=== PATIENT | female | born 1940 | race Caucasian/White ===

== ENCOUNTER 2020-03-05 12:12 | Inpatient (IN) | payer MEDICARE ==
[~2020-03-05] VITALS: Ht 152.4 cm; Wt 59.9 kg
[~2020-03-05 12:12] MED LIST: ASPI-496 PO; FOLI-17 PO; FURO40TA6 PO; LACT20SO13 PO; MULT-449 PO; OMEP-110 PO; SPIR25TA PO; THIA100T67 PO; aspirin; hydrochlorothiazide
--- NOTE | 2020-03-05 12:53 | NUR ---
PER EMS PT RECEIVED 25 MCG OF FENTANYL AND HAD ALREADY TAKEN HER PRESCRIPTION VALIUM AT HOME (UNKNOWN DOSE OF VALIUM).
[2020-03-05] MEDS ORDERED: SODIUM CHLORIDE FLUSH 10ML SYR IVF ONE ×2 (13:00→14:00)
[2020-03-05 13:21] LABS: BASOPHILS % (AUTO) 1 % (0-1); EOSINOPHILS % (AUTO) 0 % (1-7); LYMPHOCYTES % (AUTO) 18 % (22-44); MEAN CORPUSCULAR HEMOGLOBIN 28.1 pg (27.0-34.8); MEAN CORPUSCULAR HGB CONC 32.7 g/dL (32.4-35.8); MEAN PLATELET VOLUME 8.6 fL (7.4-10.4); MONOCYTES % (AUTO) 12 % (2-9); NEUTROPHILS % (AUTO) 69 % (42-75); PLATELET COUNT 173 x10^3/uL (130-400); RED BLOOD COUNT 2.66 x10^6/uL (3.82-5.3)
[2020-03-05 13:32] LABS: ALANINE AMINOTRANSFERASE 24 U/L (12-78); ANION GAP 12 mmol/L (5-15); CHLORIDE 101 mmol/L (98-107)
[2020-03-05 13:34] LABS: ALKALINE PHOSPHATASE 138 U/L (45-117); BILIRUBIN,TOTAL 2.2 mg/dL (0.2-1.0); TOTAL PROTEIN 6.3 g/dL (6.4-8.2)
[2020-03-05 13:36] LABS: MD NO
[2020-03-05 13:45] LABS: INTERNATIONAL NORMALIZED RATIO 1.27 (0.93-1.1); PROTHROMBIN TIME 13.4 Seconds (9.6-11.5)
[2020-03-05 13:47] LABS: HEMOGRAM NOTE RECHECKED
[2020-03-05] MEDS ORDERED: OCTREOTIDE 500 MCG in SODIUM CHLORIDE 0.9% 99 ML IV PRN ×2 (14:00→19:00)
[2020-03-05] MEDS ORDERED: PANTOPRAZOLE 80 MG in SODIUM CHLORIDE 0.9% 50 ML IVPB ONE (14:00)
[2020-03-05] MEDS ORDERED: OCTREOTIDE 100MCG/ML, 1ML (0.1MG/ML) IV ONE (14:00)
[2020-03-05] MEDS ORDERED: CEFTRIAXONE PMX 1GM/50ML 50 ML IV ONE (14:00)
[2020-03-05] MEDS: PANTOPRAZOLE 80 MG in SODIUM CHLORIDE 0.9% 100 ML IV SCH ×2 (14:28→23:30)
--- NOTE | 2020-03-05 14:31 | NUR ---
PT SLEEPING IN BED, PT HAS NO CURRENT WANTS AT THIS TIME, PT VSS
[2020-03-05] MEDS ORDERED: CEFTRIAXONE PMX 1GM/50ML 50 ML ONE (14:33)
[2020-03-05] MEDS ORDERED: OCTREOTIDE 100MCG/ML, 1ML (0.1MG/ML) ONE (14:59)
--- NOTE | 2020-03-05 15:11 | NUR ---
PT SLEEPING IN BED, PT HAS NO CURRENT WANTS AT THIS TIME, PT VSS
--- NOTE | 2020-03-05 15:44 | NUR ---
pt aware of urine that is needed, pt denied the urge to go at this time
--- NOTE | 2020-03-05 17:03 | NUR ---
PT RESTING IN BED WITH PT DAUGHTER AT BEDSIDE, PT CURRENTLY EATING ICE CHIPS, PT DENIED ANY WANTS OR NEEDS AT THIS TIME, PT VSS
--- NOTE | 2020-03-05 17:17 | NUR ---
DAUGHTER REQ CALL AT FLOOR TRANSFER CHAD [phone]
[2020-03-05] MEDS ORDERED: ONDANSETRON 2MG/ML, 2ML IVPush PRN (18:30)
--- NOTE | 2020-03-05 18:45 | NUR ---
pt daughter jessika called to let her know mother went up to floor bed [id number] @ [phone]
[2020-03-05] MEDS ORDERED: PANTOPRAZOLE 80 MG in SODIUM CHLORIDE 0.9% 100 ML IV SCH (19:00)
[2020-03-05 19:44] VITALS: BP 115/69
[2020-03-05] MEDS ORDERED: POTASSIUM CHLORIDE 40 MEQ in SODIUM CHLORIDE 0.9% 500 ML IV ONE (19:45)
[2020-03-05] MEDS: MORPHINE SULFATE 4 MG/ML, 1ML IVPush PRN ×2 (20:36→23:32)
[2020-03-05 23:12] LABS: MICROSCOPIC NOT IND
[2020-03-05] MEDS: SODIUM CHLORIDE 0.9% 1,000 ML IV SCH (23:32)
[2020-03-06 01:33] LABS: BASOPHILS % (AUTO) 1 % (0-1); EOSINOPHILS % (AUTO) 1 % (1-7); LYMPHOCYTES % (AUTO) 19 % (22-44); MEAN CORPUSCULAR HEMOGLOBIN 27.7 pg (27.0-34.8); MEAN CORPUSCULAR HGB CONC 32.4 g/dL (32.4-35.8); MEAN PLATELET VOLUME 8.6 fL (7.4-10.4); MONOCYTES % (AUTO) 13 % (2-9); NEUTROPHILS % (AUTO) 65 % (42-75); PLATELET COUNT 161 x10^3/uL (130-400); RED BLOOD COUNT 2.59 x10^6/uL (3.82-5.3); RED CELL DISTRIBUTION WIDTH 17.1 % (9.6-15.2)
[2020-03-06 01:38] LABS: MD NO
[2020-03-06 01:41] VITALS: BP 115/70
[2020-03-06 01:42] LABS: ALANINE AMINOTRANSFERASE 24 U/L (12-78); ALBUMIN 2.8 g/dL (3.4-5.0); ANION GAP 6 mmol/L (5-15); CALCIUM 8.7 mg/dL (8.5-10.1); CHLORIDE 101 mmol/L (98-107); CREATININE 0.92 mg/dL (0.55-1.02)
[2020-03-06 01:44] LABS: ALKALINE PHOSPHATASE 126 U/L (45-117); BILIRUBIN,TOTAL 2.2 mg/dL (0.2-1.0); TOTAL PROTEIN 6.2 g/dL (6.4-8.2)
[2020-03-06] MEDS: SODIUM CHLORIDE 0.9% 1,000 ML IV SCH ×2 (04:30→15:29)
[2020-03-06 07:15] VITALS: BP 119/70
[2020-03-06] MEDS ORDERED: PROPOFOL 10 MG/ML, 50ML ONE (07:28)
[2020-03-06] MEDS: PANTOPRAZOLE 40 MG IV IVPush SCH ×2 (08:13→21:04)
[2020-03-06 12:34] VITALS: BP 109/67
[2020-03-06] MEDS: CEFTRIAXONE PMX 1GM/50ML 50 ML IV SCH (13:22)
[2020-03-06] MEDS: MORPHINE SULFATE 4 MG/ML, 1ML IVPush PRN ×3 (13:22→21:04)
[2020-03-06 19:41] VITALS: BP 112/59
[2020-03-06 22:18] VITALS: BP 111/70
[2020-03-06 22:40] VITALS: BP 118/73
[2020-03-07] VITALS (7 sets, daily range): BP systolic 103–132; BP diastolic 67–85
[2020-03-07] MEDS: MORPHINE SULFATE 4 MG/ML, 1ML IVPush PRN ×2 (01:09→18:18)
[2020-03-07] MEDS: SODIUM CHLORIDE 0.9% 1,000 ML IV SCH ×2 (04:19→14:54)
[2020-03-07 05:24] LABS: BASOPHILS % (AUTO) 1 % (0-1); EOSINOPHILS % (AUTO) 2 % (1-7); LYMPHOCYTES % (AUTO) 21 % (22-44); MEAN CORPUSCULAR HEMOGLOBIN 28.5 pg (27.0-34.8); MEAN CORPUSCULAR HGB CONC 31.9 g/dL (32.4-35.8); MEAN PLATELET VOLUME 8.4 fL (7.4-10.4); MONOCYTES % (AUTO) 12 % (2-9); NEUTROPHILS % (AUTO) 64 % (42-75); PLATELET COUNT 164 x10^3/uL (130-400); RED BLOOD COUNT 3.14 x10^6/uL (3.82-5.3); RED CELL DISTRIBUTION WIDTH 17.2 % (9.6-15.2)
[2020-03-07 05:26] LABS: ANION GAP 6 mmol/L (5-15); CALCIUM 8.7 mg/dL (8.5-10.1); CHLORIDE 106 mmol/L (98-107)
[2020-03-07 05:28] LABS: CREATININE 0.95 mg/dL (0.55-1.02)
[2020-03-07 05:36] LABS: MD NO
[2020-03-07] MEDS ORDERED: CHLORHEXIDINE 15 ML UDC ONE (08:00)
[2020-03-07] MEDS: CEFTRIAXONE PMX 1GM/50ML 50 ML IV SCH (14:52)
[2020-03-07] MEDS ORDERED: BISACODYL 10 MG SUPP PR PRN (18:00)
[2020-03-07] MEDS ORDERED: MAGNESIUM CITRATE 300ML ORAL SOL PO PRN (18:00)
[2020-03-07] MEDS ORDERED: POLYETHYLENE GLYCOL 17 GM PACKET PO PRN (18:00)
[2020-03-08 01:59] VITALS: BP 112/78
[2020-03-08] MEDS ORDERED: OMEPRAZOLE 20 MG CAPSULE.DR PO SCH (06:00)
[2020-03-08 06:30] VITALS: BP 102/63
[2020-03-08] MEDS: FERROUS SULFATE 325 MG TABLET PO SCH ×3 (07:59→17:11)
[2020-03-08] MEDS ORDERED: LACTULOSE 20 GM/30 ML UDC PO PRN (08:00)
[2020-03-08 12:16] VITALS: BP 108/62
[2020-03-08] MEDS: CEFTRIAXONE PMX 1GM/50ML 50 ML IV SCH (14:36)
[2020-03-08] MEDS: PANTOPRAZOLE 20MG TABLET PO SCH (17:10)
[2020-03-08 19:08] VITALS: BP 102/57
[2020-03-09 02:00] VITALS: BP 116/71
[2020-03-09 05:10] LABS: BASOPHILS % (AUTO) 1 % (0-1); EOSINOPHILS % (AUTO) 1 % (1-7); LYMPHOCYTES % (AUTO) 28 % (22-44); MEAN CORPUSCULAR HEMOGLOBIN 28.4 pg (27.0-34.8); MEAN CORPUSCULAR HGB CONC 32.4 g/dL (32.4-35.8); MEAN PLATELET VOLUME 7.9 fL (7.4-10.4); MONOCYTES % (AUTO) 10 % (2-9); NEUTROPHILS % (AUTO) 61 % (42-75); PLATELET COUNT 141 x10^3/uL (130-400); RED BLOOD COUNT 2.75 x10^6/uL (3.82-5.3); RED CELL DISTRIBUTION WIDTH 17.9 % (9.6-15.2)
[2020-03-09 05:17] LABS: MD NO
[2020-03-09 05:21] LABS: CHLORIDE 107 mmol/L (98-107)
[2020-03-09 05:42] LABS: ALANINE AMINOTRANSFERASE 21 U/L (12-78); ALBUMIN 2.5 g/dL (3.4-5.0); ALKALINE PHOSPHATASE 108 U/L (45-117); ANION GAP 8 mmol/L (5-15); BILIRUBIN,TOTAL 1.2 mg/dL (0.2-1.0); CALCIUM 8.6 mg/dL (8.5-10.1); CREATININE 0.66 mg/dL (0.55-1.02); TOTAL PROTEIN 5.5 g/dL (6.4-8.2)
[2020-03-09] MEDS: PANTOPRAZOLE 20MG TABLET PO SCH ×2 (06:05→16:42)
[2020-03-09 07:07] VITALS: BP 101/57
[2020-03-09] MEDS: FERROUS SULFATE 325 MG TABLET PO SCH ×3 (08:02→16:42)
[2020-03-09 12:13] VITALS: BP 110/63
[2020-03-09] MEDS: CEFTRIAXONE PMX 1GM/50ML 50 ML IV SCH (13:51)
[2020-03-09] MEDS ORDERED: FERR-51 PO (16:20)
[2020-03-09] MEDS ORDERED: TRAM50TA2 PO (16:20)
[2020-03-09] MEDS ORDERED: FLU VACC QS2020-21(6MOS UP)/PF 60MCG/0.5 ML SYR IM ONE (17:00)
== END 2020-03-09 17:50 | disposition home health service (06) | DRG 551 ==
LOC: ED 12:31 → EDIP 13:53 → SUATTDRO 14:41 → 4WST 19:05
PROVIDERS: ADMIT Internal Medicine; ATTEND Internal Medicine
PROC: 30233N1 Transfusion of Nonautologous Red Blood Cells into Peripheral Vein, Percutaneous Approach (ICD-10-PCS; 2020-03-06)
PROC: 0DJ08ZZ Inspection of Upper Intestinal Tract, Via Natural or Artificial Opening Endoscopic (ICD-10-PCS; principal; 2020-03-07 08:00)
DX: S22.089A Unspecified fracture of T11-T12 vertebra, initial encounter for closed fracture (principal); I85.01 Esophageal varices with bleeding; D62 Acute posthemorrhagic anemia; E87.1 Hypo-osmolality and hyponatremia; K70.30 Alcoholic cirrhosis of liver without ascites; E87.6 Hypokalemia; E88.09 Other disorders of plasma-protein metabolism, not elsewhere classified; G89.29 Other chronic pain; I10 Essential (primary) hypertension; M19.90 Unspecified osteoarthritis, unspecified site; Z20.828 Contact with and (suspected) exposure to other viral communicable diseases; K31.89 Other diseases of stomach and duodenum; M47.816 Spondylosis without myelopathy or radiculopathy, lumbar region; M51.36 Other intervertebral disc degeneration, lumbar region; W18.30XA Fall on same level, unspecified, initial encounter; Y92.009 Unspecified place in unspecified non-institutional (private) residence as the place of occurrence of the external cause; Z87.11 Personal history of peptic ulcer disease; Z90.710 Acquired absence of both cervix and uterus; Z98.82 Breast implant status; Z87.891 Personal history of nicotine dependence
CPT/HCPCS: 36415; 36430; 70450; 72125; 72131; 80048; 80053; 80307; 81003; 82140; 83735; 84100; 85014; 85018; 85025; 85610; 86850; 86900; 86923; 87635; 90686; 93005; 96365; 96375; 99291; G0378; J0696; J2354; J2704; J3480; C9113; J2270; J7030; J7040; P9016